=== PATIENT | male | born 1960 | race Caucasian/White ===

== ENCOUNTER 2017-08-21 12:22 | Emergency (ER) | payer OTHER, SELFPAY ==
[2017-08-21 13:43] LABS: #Eosinphils 0.1 thou/uL (0.0-0.7); #Lymphocytes 1.2 thou/uL (1.20-3.40); #Monocytes 0.5 thou/uL (0.11-0.59); #Neutrophils 3.8 thou/uL (1.40-6.50); %Basophils 0.3 % (0.0-1.0); %Eosinophils 0.9 % (0.0-10.0); %Lymphocytes 21.7 % (21.0-51.0); %Monocytes 9.4 % (0.0-10.0); Hematocrit 47.9 % (42.0-52.0); Mean Platelet Volume 6.7 fL (7.4-10.4); Red Blood Cell (RBC) Count 4.15 mill/uL (4.70-6.10); White Blood Cell (WBC) Count 5.6 thou/uL (4.8-10.8)
[2017-08-21 13:46] LABS: PTT 27.4 SEC (22.9-36.1)
[2017-08-21 13:47] LABS: Prothrombin Time 14.5 SEC (12.0-14.7)
[2017-08-21 13:57] LABS: Macrocytosis MODERATE=16-30 cells (100X) (0-5/hpf)
[2017-08-21 14:14] LABS: Digoxin Less than 0.15 ng/mL (0.8-2.0)
[2017-08-21 14:16] LABS: ALT (SGPT) 30 U/L (8-55); AST (SGOT) 32 U/L (5-34); Alkaline Phosphatase 112 U/L (40-150); Anion Gap 13 mmol/L (10-20); BUN (Urea Nitrogen) 9 mg/dL (8.4-25.7); Bilirubin, Total 0.7 mg/dL (0.2-1.2); CK (CPK) 173 U/L (30-200); Calc. Creatinine Clearance 0 mL/min (70-130); Calcium 8.8 mg/dL (7.8-10.44); Carbon Dioxide 27 mmol/L (22-29); Chloride 104 mmol/L (98-107); Estimated GFR-MDRD 73; Globulin 3.5 g/dL (2.4-3.5); Lipase 35 U/L (8-78)
[2017-08-21 14:19] LABS: Troponin I 0.044 ng/mL (< 0.028)
--- NOTE | 2017-09-20 14:38 | EKG ---
Test Reason : Blood Pressure : / mmHG Vent. Rate : 103 BPM Atrial Rate : 103 BPM P-R Int : 146 ms QRS Dur : 086 ms QT Int : 358 ms P-R-T Axes : 025 055 008 degrees QTc Int : 468 ms Sinus tachycardia Otherwise normal ECG Confirmed by MATI BEAULIEU MD ([id number]), clinical editor TRAVIS AHN ([id number]) on 09/20/2017 2:38:11 PM Referred By: Confirmed By:MATI BEAULIEU MD
== END 2017-08-21 15:10 | disposition home or self-care (01) ==
LOC: ERS 12:22
DX: R20.2 Paresthesia of skin (principal); F17.220 Nicotine dependence, chewing tobacco, uncomplicated
CPT/HCPCS: 36415; 80053; 80162; 82550; 82553; 83690; 84484; 85025; 85610; 85730; 93005; 94760

== ENCOUNTER 2020-10-16 14:58 | Observation (INO) | payer SELFPAY ==
[2020-10-16] MEDS ORDERED: Aspirin Chewable 81 MG TAB ONE (15:17)
--- NOTE | 2020-10-16 15:23 | RAD ---
XR Chest 1 View Portable HISTORY: Chest pain COMPARISON: 03/16/2013 FINDINGS: The heart size is enlarged. The lungs are well expanded without focal areas of consolidatio n, luis pulmonary edema, pneumothorax or pleural effusions. IMPRESSION: No radiographic evidence of acute cardiopulmonary process.
[2020-10-16] MEDS ORDERED: Nitroglycerin 2% Ointment 1 INCH/1 GM Packet ONE (15:29)
[2020-10-16 15:35] LABS: #Eosinphils 0.1 thou/uL (0.0-0.7); #Lymphocytes 1.5 thou/uL (1.20-3.40); #Monocytes 0.6 thou/uL (0.11-0.59); #Neutrophils 3.5 thou/uL (1.40-6.50); %Basophils 0.6 % (0.0-1.0); %Eosinophils 1.8 % (0.0-10.0); %Lymphocytes 26.2 % (21.0-51.0); %Monocytes 9.7 % (0.0-10.0); %Neutrophils 61.6 % (42.0-75.0); Hemoglobin 16.7 g/dL (14.0-18.0); Mean Corpuscular HGB CONC 33.9 g/dL (32.0-36.0); Mean Corpuscular Hemoglobin 38.2 pg (27.0-31.0); Mean Platelet Volume 7.8 fL (7.4-10.4); Platelet Count 122 thou/uL (130-400); RBC Distribution Width 11.8 % (11.5-14.5); Red Blood Cell (RBC) Count 4.38 mill/uL (4.70-6.10); White Blood Cell (WBC) Count 5.7 thou/uL (4.8-10.8)
[2020-10-16 15:50] LABS: ALT (SGPT) 32 U/L (8-55); AST (SGOT) 33 U/L (5-34); Albumin 3.5 g/dL (3.5-5.0); Alkaline Phosphatase 136 U/L (40-110); Anion Gap 12 mmol/L (10-20); BUN (Urea Nitrogen) 10 mg/dL (8.4-25.7); Bilirubin, Total 0.6 mg/dL (0.2-1.2); Calc. Creatinine Clearance 0 mL/min (70-130); Calcium 8.7 mg/dL (7.8-10.44); Carbon Dioxide 25 mmol/L (22-29); Chloride 104 mmol/L (98-107); Globulin 4.5 g/dL (2.4-3.5); Glucose 119 mg/dL (70-105); MDiff Complete? YES; Macrocytosis SLIGHT = 6-15 cells (100X) (0-5/hpf); Magnesium 2.2 mg/dL (1.6-2.6); Platelet Morphology Comment Appears Decreased; Polychromasia SLIGHT = 2-3 cells (100X) (0-2/hpf); Sodium 137 mmol/L (136-145)
[2020-10-16 16:11] LABS: CKMB 1.3 ng/mL (0-6.6)
--- NOTE | 2020-10-16 16:17 | PDOC.FPRHP ---
- History of Present Illness Chief Complaint: CP History of Present Illness: This is a 60M without known PMH as he does not have a doctor. He is presenting to the ED for intermittent, sharp, stabbing, 3/10 CP that lasted "about a split second" but was occurring every 20-30min. It was on the L side, without radiation to back/arm/jaw. Started about 1030 this am through 1500, but stopped right before he got here. He was washing and folding clothes at the time and did not notice any exacerbating/relieving factors. This has never happened before. No other associated sxs: diaphoresis, dizziness, vision changes, syncope, N/V, SOB. He denies hx of NM, stroke. 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 He did not eat/drink anything new but typically drinks 2-3 cups of coffee per day and today drank "a whole pot of coffee, so about 8 cups more than usual". ED Course: ASA, nitro, 500mL NS bolus - Allergies/Adverse Reactions Allergies Allergy/AdvReac Type Severity Reaction Status Date / Time No Known Allergies Allergy Unverified 11/22/19 17:22 - Home Medications Medication Instructions Recorded Confirmed Type Atorvastatin Calcium 40 mg PO DAILY 30 Days #30 tablet 10/18/20 Rx Carvedilol [Coreg] 3.125 mg PO BID-WM 30 Days #60 tab 10/18/20 Rx - History PMHx: Denies any, no hx of NM/stroke PSHx: Denies FHx: Father - NM x3, first at 47yo. Brother - HLD, NM with stent at 55yo. Mom - DM. Social: Smoker - dips, no smoking Drinker - 6pk beer/day x 7d Drugs - denies - Review of Systems General: denies: fever/chills, fatigue Eyes: denies: vision changes ENT: denies: nasal congestion Respiratory: denies: cough, shortness of breath, exercise intolerance Cardiovascular: reports: chest pain. denies: palpitation, edema Gastrointestinal: denies: nausea, vomiting, diarrhea Skin: denies: rashes Neurological: denies: syncope, seizure - Vital signs BP: 146/91, Pulse: 99, Resp: 15, O2 sat: 94 on (Room Air) - Physical Exam Constitutional: NAD, awake, alert and oriented, well developed -Constitutional: obese HEENT: normocephalic and atraumatic, EOMI, grossly normal vision, grossly normal hearing Neck: supple, FROM Chest: no-tender to palpation, no lesions Heart: RRR, normal S1/S2, no murmurs/rubs/gallops, pulses present (2+ radial, dp b/l) -Heart: Minimal edema, non-pitting Lungs: CTAB, no respiratory distress, good air movement, no rales/rhonchi Musculoskeletal: normal structure, normal tone, ROM grossly normal Neurological: no focal deficit, CN II-XII intact Skin: no rash/lesions Psychiatric: normal mood and affect, good judgment and insight, intact recent and remote memory FMR H&P: Results - Labs Result Diagrams: 10/16/20 15:12 10/16/20 15:12 Lab results: Trop 0.030 WBC 5.7 thou/uL (4.8-10.8) 10/16/20 15:12 Hgb 16.7 g/dL (14.0-18.0) 10/16/20 15:12 Hct 49.4 % (42.0-52.0) 10/16/20 15:12 MCV 113.0 fL (78.0-98.0) H 10/16/20 15:12 Plt Count 122 thou/uL (130-400) L 10/16/20 15:12 Neutrophils % 61.6 % (42.0-75.0) 10/16/20 15:12 Sodium 137 mmol/L (136-145) 10/16/20 15:12 Potassium 4.0 mmol/L (3.5-5.1) 10/16/20 15:12 Chloride 104 mmol/L (98-107) 10/16/20 15:12 Carbon Dioxide 25 mmol/L (22-29) 10/16/20 15:12 BUN 10 mg/dL (8.4-25.7) 10/16/20 15:12 Creatinine 1.17 mg/dL (0.7-1.3) 10/16/20 15:12 Glucose 119 mg/dL (70-105) H 10/16/20 15:12 Calcium 8.7 mg/dL (7.8-10.44) 10/16/20 15:12 Total Bilirubin 0.6 mg/dL (0.2-1.2) 10/16/20 15:12 AST 33 U/L (5-34) 10/16/20 15:12 ALT 32 U/L (8-55) 10/16/20 15:12 Alkaline Phosphatase 136 U/L (40-110) H 10/16/20 15:12 CK-MB (CK-2) 1.3 ng/mL (0-6.6) 10/16/20 15:12 B-Natriuretic Peptide 89.8 pg/mL (0-100) 10/16/20 15:12 Serum Total Protein 8.0 g/dL (6.0-8.3) 10/16/20 15:12 Albumin 3.5 g/dL (3.5-5.0) 10/16/20 15:12 - EKG Interpretation EKG: NSR with tachycardia and occasional PVCs but no ST changes or T wave inversions - Radiology Interpretation Chest x-ray Status: report reviewed by me (no acute cardiopulmonary findings) FMR H&P: A/P - Plan This is a 60M presenting to the ED for CP, admitted for ACS r/o. Chest pain, ACS r/o - Typical CP sxs, risk factors of morbid obesity, drinker, and FHx - Trop 0.030 > trend - EKG shows NSR with tachycardia and occasional PVCs but no ST changes or T wave inversions - CXR neg - Risk stratifying labs ordered: A1c, lipid panel, TSH - admit to tele - HH-LS diet but NPO at midnight for stress test in am HTN - BP 161/83 on admission - Monitor vitals and treat as needed Alcohol use disorder - ASE protocol Morbid obesity Dispo: admit to tele IVF: SL Diet: HH-LS > NPO at MN GI ppx: N/A DVT ppx: SCDs. Veronica score of 1 PCP: None Code: Full FMR H&P: Upper Level - Plan Date/Time: 10/16/20 [id number] Redd, Fazal Brizuela [id number], have evaluated this patient and agree with findings/plan as outlined by director international resident. Pertinent changes/additions are listed here. 60-year-old male with no significant past medical history presents for chest pain. Left-sided chest pain 10:00 in the morning today. It is sharp AND dull in character with no radiation and no transforming factors. Spontaneously resolved around 3 PM before administration of nitro or aspirin patient denies shortness of breath diaphoresis palpitations he states he has not seen a doctor in 10 years. He has no medical history. He is obese, uses 1 can of snuff per day, and drinks 6 beers per day. On examination he is obese, no distress, heart has regular rate and rhythm with no murmur patient bilaterally, no JVD, no lower extremity edema. Assessment and plan Chest pain, likely secondary to GI versus MSK Patient is stable and asymptomatic at this time. EKG shows sinus tachycardia with occasional PVC, troponin is indeterminate, chest x-ray negative, BNP 89. He is status post nitro and aspirin will admit to telemetry for observation as we expect less than 2 midnights. Will get labs for risk stratification plan for stress test tomorrow. Alcohol misuse Drinking 1 sixpack per day, will plan for ASE protocol Premature ventricular contractions As seen on EKG, will monitor on telemetry CODE STATUS: Full code Disposition: Observation, Expect less than 2 midnights Addendum - Attending - Attending Attestation Date/Time: 10/22/20 1520 I personally evaluated the patient and discussed the management with Dr. Michael Valdovinos. I agree with the History, Examination, Assessment and Plan documented above with any addition or exceptions noted below.
[2020-10-16 18:05] LABS: Cardiac Risk 4.7 (Less than 4.5)
[2020-10-16 18:37] VITALS: BMI 44.4
[2020-10-16 18:45] LABS: Hemoglobin A1c 5.5 % (4.0-6.0)
[2020-10-16 19:04] LABS: Troponin I 0.021 ng/mL (< 0.028)
[2020-10-16 21:49] LABS: Troponin I 0.024 ng/mL (< 0.028)
[2020-10-17 05:50] LABS: SARS-CoV-2 PCR by NAA Not Detected (NotDetected)
--- NOTE | 2020-10-17 07:01 | PDOC.FM ---
- Subjective Subjective: Pt states he is feeling much better today. CP has completely resolved. Denies SOB, N/V - Objective Vital Signs & Weight: Vital Signs (12 hours) Temp Pulse Resp BP Pulse Ox 10/17/20 05:13 98.4 F 84 20 127/74 94 L 10/16/20 20:41 98.2 F 100 18 140/75 96 Weight Weight 132.45 kg Result Diagrams: 10/16/20 15:12 10/16/20 15:12 Phys Exam - Physical Examination Constitutional: NAD Neck: supple Respiratory: no wheezing, clear to auscultation bilateral Cardiovascular: RRR, no significant murmur Gastrointestinal: soft, non-tender Musculoskeletal: no edema Neurological: non-focal Psychiatric: normal affect, A&O x 3 Dx/Plan - Plan Plan: This is a 60M presenting to the ED for CP, admitted for ACS r/o. Typical Chest pain, ACS r/o - Typical CP sxs, risk factors of morbid obesity, alcohol abuse, tobacco abuse and FHx - Trop 0.030, 0.02, 0.02 - EKG shows NSR with tachycardia and occasional PVCs but no ST changes or T wave inversions - CXR neg - ASCVD 8.9%, will start moderate intensity statin - has NM stress ordered today, will consult cardiology if abnormal, if normal will discharge home with instructions to establish care with PCP Elevated BP with no dx of HTN - BP 161/83 on admission, currently normotensive - continue to monitor vitals, will need outpatient f/u Alcohol use disorder - ASE protocol Morbid obesity -aware Code: Full IVF: SL Diet: NPO DVT ppx: SCDs. Veronica score of 1 PCP: None Dispo: admit to tele, pending NM stress today
--- NOTE | 2020-10-17 12:25 | HP ---
Please see both the history and physical done by Dr. Viktoriya Christianson as well as a progress note from Dr. Ne Bello, both of which were reviewed and which I agreed. The patient was seen, evaluated, discussed, and examined with the residents at bedside. HISTORY OF PRESENT ILLNESS: A 60-year-old with major medical history, although it did not sound like he has seen a doctor in a while, started having pretty classic anginal-type substernal chest pain associated with shortness of breath, seemed to improve emergency room, and is coming in for evaluation for this chest pain. Past medical history, surgical history, family history were reviewed and significant for a lot of family history of coronary artery disease. SOCIAL HISTORY: Denies smoking, but does dip. Drinks fairly routinely. REVIEW OF SYSTEMS: Otherwise, per the residents' history and physical. PHYSICAL EXAMINATION: VITAL SIGNS: On the chart. GENERAL: No apparent distress. LUNGS: Breathing comfortably. ENT: Within normal limits. EYES: Conjunctivae not pale. CHEST: Clear. HEART: Regular rate and rhythm. ABDOMEN: Benign. EXTREMITIES: Have 1+ pitting edema. DIAGNOSTIC STUDIES: Initial cardiac enzymes look okay as does EKG and chest x-ray also was fine. ASSESSMENT AND PLAN: Chest pain. Plan is to proceed with the nuclear medicine, cardiac stress test, and awaiting on lab workup. Other risk factors including lipids, A1c, etc, and plan will be based on what some of these results show as if the stress test is positive. Certainly, we recommended for heart catheterization. Job ID: [id number]
[2020-10-17] MEDS ORDERED: Aspirin 325 MG TAB PO SCH (17:00)
[2020-10-17] MEDS ORDERED: Regadenoson 0.4 MG/5 ML SYRINGE ONE (17:38)
[2020-10-17] MEDS ORDERED: Atorvastatin Calcium 20 MG TAB PO SCH (21:00)
--- NOTE | 2020-10-18 06:29 | PDOC.FM ---
- Subjective Subjective: Pt sitting up in bed, awake and alert. He states he tolerated the procedure well yesterday. He says he has his first grandchild expected soon and this is giving him motivation to improve his health. He plans to establish care with a local PCP. - Objective Vital Signs & Weight: Vital Signs (12 hours) Temp Pulse Resp BP Pulse Ox 10/18/20 04:18 98.1 F 81 20 144/77 H 94 L 10/17/20 21:12 158/80 H 10/17/20 19:59 97.7 F 91 20 171/83 H 97 Weight Weight 132.45 kg Result Diagrams: 10/16/20 15:12 10/16/20 15:12 Phys Exam - Physical Examination Constitutional: NAD HEENT: sclera anicteric Neck: supple, full ROM Respiratory: no wheezing, clear to auscultation bilateral Cardiovascular: RRR, no significant murmur Gastrointestinal: soft, no distention Neurological: non-focal Psychiatric: normal affect, A&O x 3 Dx/Plan - Plan Plan: This is a 60M presenting to the ED for CP, admitted for ACS r/o. Typical Chest pain, ACS r/o - Typical CP sxs, risk factors of morbid obesity, alcohol abuse, tobacco abuse and FHx - Trop 0.030, 0.02, 0.02 - EKG shows NSR with tachycardia and occasional PVCs but no ST changes or T wave inversions - CXR neg - ASCVD 8.9%, will start moderate intensity statin - has second part of NM stress today, will consult cardiology if abnormal, if normal will discharge home with instructions to establish care with PCP Elevated BP with no dx of HTN - BP 161/83 on admission, currently normotensive - continue to monitor vitals, will need outpatient f/u Alcohol use disorder - ASE protocol Morbid obesity -aware Code: Full IVF: SL Diet: NPO DVT ppx: SCDs. Veronica score of 1 PCP: None Dispo: admit to tele, pending NM stress today
--- NOTE | 2020-10-18 11:28 | NM ---
Exam: Nuclear medicine cardiac stress with EF and wall motion HISTORY: Chest pain TECHNIQUE: Patient was administered 27.40 mCi of technetium 99m sestamibi for rest imaging and 29.40 mCi of technetium 99m sestamibi for stress imaging. Cardiac gating is performed FINDINGS: There appears be reversibility of the cardiac apex. There is a component of fixed defect in the septu m. TID is 1.19 End-diastolic volume 146 mL End-systolic volume 78 mL There is decreased motion and thickening involving the septum. 47% ejection fraction IMPRESSION: 1. Reversibility involving the cardiac apex. 2. Decreased motion in the septum. 47% ejection fraction.
--- NOTE | 2020-10-18 12:54 | PRG ---
DATE OF SERVICE: 10/18/2020 Please see the note done by Ne Bello, for which I agree. The patient was seen, evaluated, and discussed with the residents. Really no change in exam. He feels fine. No chest pains. Just waiting on second part of the stress test today and based on that, we will figure out what we are going to do for management. Job ID: [id number]
[2020-10-18 15:26] VITALS: BP 134/68; TEMP 97.8
[2020-10-18] MEDS ORDERED: Carvedilol 3.125 MG TAB PO SCH (17:00)
--- NOTE | 2020-10-18 20:21 | CON ---
DATE OF CONSULTATION: 10/18/2020 INDICATION FOR CONSULTATION: 60-year-old patient with abnormal cardiac stress test with history of hypercholesterolemia. HISTORY OF PRESENT ILLNESS: This is a very pleasant 60-year-old obese gentleman who has had no previous cardiac history that he is aware of. He does say that he has hypercholesterolemia, presented to the hospital after he noticed a 4.5-hour episode of some sharp stabbing pinprick chest pain which lasted only for a couple of seconds. He had it about 2 times an hour for about 4 hours. By the time he arrived to the emergency room the discomfort had resolved. He did have cardiac enzymes which were negative. His EKG also was unremarkable, had a normal EKG except for occasional PVCs. He underwent stress testing, which showed some apical reversible ischemia, we were advised to see him. He has had no other cardiac history that he is aware of. His risk factors would include hypercholesterolemia which is found to have an LDL of 132. He denies any history of hypertension, diabetes. He does have a family history of coronary artery disease and also, he has had family members who had heart attacks at a relatively young age. I believe his father had an NC at age 47, however, he was a heavy smoker. He also had a brother who had a myocardial infarction at age of 55, but also had hyperlipidemia. He is otherwise healthy except for his obesity. He is a class b truck driver. He does not do any significant physical activity otherwise. PAST MEDICAL HISTORY: Unremarkable for any significant operations or illnesses. No significant hospitalizations. He has been healthy. FAMILY HISTORY: As noted above. SOCIAL HISTORY: He continues to drink about a 6 pack a day and he also dips tobacco, which he has done for almost 50 years. REVIEW OF SYSTEMS: Unremarkable except as noted in the History of Present Illness. PHYSICAL EXAMINATION: GENERAL: Reveals a well-developed, well-nourished, morbidly obese gentleman, who is in no acute distress. He is alert. He is oriented. VITAL SIGNS: Show a blood pressure of 151/86, previously it was 126/68. He is afebrile. Heart rate is in the 80s, it shows a sinus rhythm. Respiratory rate is 18. HEENT: Shows the head to be normocephalic and atraumatic. Carotid pulses are present. There were no bruits. CHEST: Clear to auscultation without rales, rhonchi, or wheezing. CARDIOVASCULAR: Reveals a regular rate and rhythm with normal S1, S2. There is no S3 or S4. There were no significant murmurs, heaves, thrills, bruits, or rubs noted. ABDOMINAL: Shows morbid obesity. Positive bowel sounds are present. EXTREMITIES: Show no clubbing, cyanosis, or edema. Pedal pulses are present. NEUROLOGICAL: He is fully intact. LABORATORY DATA: Showed triglycerides 142, total cholesterol was 203 with LDL of 132 with HDL of 43. Cardiac enzymes are negative. WBC was 5.7, hemoglobin 16.7, platelet count was 122,000. Sodium was 137, potassium of 4, creatinine was 1.17 with a BUN of 10, and blood sugar was 119. His blood sugars have been slightly elevated throughout his hospitalization and most likely, he is an elderly diabetic. Hemoglobin A1c was done on admission, this did show hemoglobin A1c of 5.5. MEDICATIONS: At this time include; 1. Atorvastatin. 2. Aspirin. 3. He was not on any medications at home. IMAGING STUDIES: His EKG showed sinus rhythm as noted above with occasional premature ventricular contractions. IMPRESSION: 1. 60-year-old gentleman with an abnormal stress test with what appears to be reversible ischemia at the apex. He has a well-preserved left ventricular systolic function. He has had no further chest pain. I have discussed with him about the possibility of cardiac catheterization versus medical management and then follow up in about a month. After discussing the cardiac catheterization, he wishes to attempt medical management at this time, I would be in agreement with that. This is a small area at the apex. His ejection fraction was slightly decreased, but this may be due to the nuclear study itself. I do not see that an echocardiogram was performed, this could be a possibility that also can be done as an outpatient since he has remained asymptomatic since his admission and enzymes are negative. 2. Hypercholesterolemia. I would agree with starting this patient on statin medications and would continue this at least at a moderate dose of atorvastatin, we would increase this up to 40 mg a day. 3. Tobacco abuse. I suggest that he stop using any kind of tobacco products. 4. Morbid obesity. I suggest that he go on a diet and try to do exercise by walking and see if he can lose at least 50 pounds. 5. What appears to be mild hypertension. We will start this patient on a beta lazaro since he does have a somewhat abnormal stress test and most certainly to opt for medical management with beta blockers and also SAMEER inhibitors. I will be more than happy to see the patient back in the office in about a month, but this time he prefers medical management over cardiac catheterization. Job ID: [id number]
[2020-10-18] MEDS ORDERED: Atorvastatin Calcium 20 MG TAB PO SCH (21:00)
--- NOTE | 2020-10-21 11:42 | DIS ---
DATE OF ADMISSION: 10/16/2020 DATE OF DISCHARGE: 10/18/2020 RESIDENT: Ne Bello, PGY-1. ADMITTING ATTENDING: John Perales MD DISCHARGE ATTENDING: Chris Bello MD CONSULTS: Cardiology, Dr. Sanchez. PROCEDURES: Nuclear medicine stress test: Reversibility involving the cardiac apex. Decreased motion in the septum. 47% ejection fraction. PRIMARY DIAGNOSES: Typical chest pain, acute coronary syndrome rule out. SECONDARY DIAGNOSES: 1. Obesity. 2. Elevated BP with no dx of HTN 3. Alcohol Abuse Discharge Medications: Atorvastatin 40mg qd Carvedilol 3.125mg bid HPI: This is a 60M without known PMH as he does not have a doctor. He is presented to the ED with intermittent, sharp, stabbing, 3/10 CP that lasted "about a split second" but was occurring every 20-30min. It was on the L side, without radiation to back/arm/jaw. He was washing and folding clothes at the time and did not notice any exacerbating/relieving factors. This has never happened before. No other associated sxs: diaphoresis, dizziness, vision changes, syncope, N/V, SOB. He denie hx of NE, stroke. Lab Data: WBC 5.7, Hgb 16.7, Plt 122, troponin 0.03, 0.02, 0.02. A1c 5.5, Na 137, K 4, Bun 10, Cr 1.17, AST 33, ALT 32, Cholesterol 203, HDL 43. TSH 1.94. EKG shows NSR with tachycardia and occasional PVCs but no ST changes or T wave inversions. CXR negative. ASCVD 8.9%. Chest pain resolved shortly after presentation to ED. Pt underwent NM stress, results as above. [facility] was consulted due to abnormal results and after discussion with patient, it was decided he would like to try medical management with outpatient f/u. He was started on a statin and a beta lazaro. Pt also stated he had a goal to quit drinking and lose weight. He was advised to quit using tobacco of any kind. Disposition: Stable Location: Home Diet: HH Activity: No restrictions Follow Up: Advised pt to establish with a PCP. F/u with Dr Sanchez in one month. Job ID: [id number] [facility]
== END 2020-10-18 16:03 | disposition home or self-care (01) ==
LOC: ERS 14:58 → 3SE 16:18 → 2NO 10-17 16:23
PROVIDERS: ADMIT Family Medicine; ATTEND Family Medicine
DX: R07.2 Precordial pain (principal); R03.0 Elevated blood-pressure reading, without diagnosis of hypertension; F10.10 Alcohol abuse, uncomplicated; F17.290 Nicotine dependence, other tobacco product, uncomplicated; I49.3 Ventricular premature depolarization; E78.00 Pure hypercholesterolemia, unspecified; E66.01 Morbid (severe) obesity due to excess calories; Z68.41 Body mass index [BMI] 40.0-44.9, adult; Z20.822 Contact with and (suspected) exposure to COVID-19
CPT/HCPCS: 36415; 71045; 78452; 80053; 80061; 82553; 83036; 83735; 83880; 84443; 84484; 85025; 87635; 93005; 93017; 94760; A9500; G0378; J2785; U0003; U0005

== ENCOUNTER 2023-05-13 13:17 | Emergency (ER) | payer BC ==
[2023-05-13 13:46] LABS: #Eosinphils 0.2 thou/uL (0.0-0.7); #Monocytes 0.5 thou/uL (0.11-0.59); %Basophils 0.2 % (0.0-1.0); %Lymphocytes 19.1 % (21.0-51.0); %Monocytes 10.1 % (0.0-10.0); %Neutrophils 66.4 % (42.0-75.0); Hematocrit 48.1 % (42.0-52.0); Hemoglobin 16.4 g/dL (14.0-18.0); Mean Corpuscular HGB CONC 34.1 g/dL (32.0-36.0); Mean Corpuscular Hemoglobin 38.3 pg (27.0-31.0); Mean Corpuscular Volume 112.4 fl (78.0-98.0); Mean Platelet Volume 9.8 fL (7.4-10.4); Platelet Count 129 10x3/uL (130-400); RBC Distribution Width 13.2 % (11.5-14.5); Red Blood Cell (RBC) Count 4.28 mill/uL (4.70-6.10); White Blood Cell (WBC) Count 4.5 10x3/uL (4.8-10.8)
[2023-05-13 14:11] LABS: ALT (SGPT) 36 U/L (8-55); AST (SGOT) 46 U/L (5-34); Albumin 3.4 g/dL (3.4-4.8); Alkaline Phosphatase 149 U/L (40-110); Anion Gap 12 mmol/L (10-20); BUN (Urea Nitrogen) 11 mg/dL (8.4-25.7); Bilirubin, Total 0.7 mg/dL (0.2-1.2); Calc. Creatinine Clearance 0 mL/min (70-130); Calcium 9.2 mg/dL (7.8-10.44); Carbon Dioxide 25 mmol/L (23-31); CellaVision Operator ID LAB.KB; Chloride 102 mmol/L (98-107); Estimated GFR 70; Globulin 4.9 g/dL (2.4-3.5); Glucose 105 mg/dL (80-115); Lipase 46 U/L (8-78); Macrocytosis SLIGHT = 6-15 cells HPF (0-5); Platelet Adequacy Comment Platelets Decreased; Polychromasia SLIGHT = 2-3 cells HPF (0-2); Potassium 4.1 mmol/L (3.5-5.1); Protein, Total 8.3 g/dL (5.8-8.1); Sodium 135 mmol/L (136-145)
[2023-05-13 14:13] LABS: Troponin I Less than 0.010 ng/mL (< 0.028)
[2023-05-13] MEDS ORDERED: Azithromycin 250 MG TAB ONE (15:26)
[2023-05-13] MEDS ORDERED: Benzonatate 100 MG CAP ONE (15:26)
== END 2023-05-13 15:31 | disposition home or self-care (01) ==
LOC: ERS 13:17
DX: J18.9 Pneumonia, unspecified organism (principal); F17.220 Nicotine dependence, chewing tobacco, uncomplicated
CPT/HCPCS: 71045; 80053; 83690; 83880; 84484; 85025; 93005